=== PATIENT | female | born 1990 | race Caucasian/White ===

== ENCOUNTER 2018-05-12 16:43 | Outpatient (REF) | payer OTHER, SELFPAY | END 2018-05-12 17:03 | LOC: NCHCN 16:43 | PROVIDERS: PCP Family Medicine; Visit Provider Family Medicine | DX: N12 Tubulo-interstitial nephritis, not specified as acute or chronic (principal) | CPT/HCPCS: 87077; 87086; 87186 ==

== ENCOUNTER 2019-02-17 18:34 | Emergency (ER) | payer OTHER, SELFPAY ==
[2019-02-17 18:40] VITALS: BP 134/64; PULSE 77; RESP 16; TEMP 37; O2SAT 98
[2019-02-17 18:47] VITALS: RESP 16
--- NOTE | 2019-02-17 18:54 | ED.GENADUL_ITS ---
Discharge Plan Disposition Patient Disposition: HOME Condition: Stable Discharge Details Chief Complaint: Vascular Clinical Impression: Swelling of joint of left wrist Primary Care Provider: Sony Hutson ED Provider: Matheus Gasca Home Meds and New Rx's Prescriptions: No Action ibuprofen 200 MG capsule 1 cap PO PRN PRNRF: 0 multivitamin Capsule 1 cap PO DAILY RF: 0 naproxen sodium [Aleve] 220 mg Capsule 220 mg PO PRN PRNRF: 0 Discharge Instructions Additional Instructions: I suspect your symptoms are due to overuse syndrome but would like to rule out a DVT. You should be contacted to set up a time to have an ultrasound done if not better in a week see your primary care provider. WHile sitting or laying try to keep the arm elevated if you have severe worsening pain, high fevers or feel more ill return to the emergency department Medical Decision Making 28 yo female comes in with left arm swelling since last night primarily around the wrist. Denies falls or other trauma. HAs no systemic symptoms of infectious symptoms and no rashes. States she has had this in the past a few years ago and had an u/s which was negative per pt and it resolved on it's own. She does a lot of typing and lifting with her arms. She has mild swelling of the left wrist with no palpable tenderness and normal 2+ radial and ulnar pulses. I suspect overuse syndrome but will have pt return for an u/s to eval for dvt tomorrow. She has normal pulses and vascular exam otherwise so doubt dissection or arterial occlusion. Will have her f/u with pcp if it continues and return if worsening Differential Diagnosis dvt, strain, overuse HPI General Mode of arrival: ambulatory . Date/Time Provider Initiated Documentation: 02/17/19 18:48 . Limitations to Documentation: no limitations . Information obtained by: patient . History of Present Illness 28 year old F presents to the emergency department with the chief complaint of left wrist swelling, described as moderate, Quality is described as aching, and is localized to the left and upper extremity. Patient reports no radiation. Patient started experiencing this day(s) (1) and it has been constant. No relieving factors improve symptom(s), No exacerbating factors reported . Patient notes no other symptoms.. Patient did receive the following treatments prior to arrival, none Related Data Home Medications Medication Instructions Recorded Confirmed ibuprofen 1 cap PO PRN PRN 07/26/15 02/17/19 multivitamin 1 cap PO DAILY 02/17/19 02/17/19 naproxen sodium [Aleve] 220 mg PO PRN PRN 02/17/19 02/17/19 Allergies Allergy/AdvReac Type Severity Reaction Status Date / Time No Known Allergies Allergy Unverified 02/17/19 18:44 General Stated Complaint: Vascular ROSALBA: 3 Review of Systems Review of Systems All systems reviewed & are unremarkable except as noted in HPI and below Constitutional Denies chills, Denies fever(s) and Denies weakness Cardiovascular Denies chest pain and Denies dyspnea Respiratory Denies cough and Denies dyspnea Gastrointestinal Denies abdominal pain, Denies nausea and Denies vomiting Integumentary/Breasts Denies rash Neurologic Denies weakness PFSH Social History Smoking/Tobacco Use Status: Current-Occasional Alcohol Intake: never Drug use: Never Substance use type: does not use Do you feel safe at home: Yes Exam Const General: no acute distress Orientation: alert HENMT Head: normal to inspection Ears: external ears normal General nose exam: external nose normal Mouth: moist mucous membranes Eyes General: appearance normal, both eyes and all related structures Neck Neck: normal visual inspection Resp Effort & Inspection: normal respiratory effort and able to speak in complete sentences Cardio Rate: regular rate Skin General skin exam: no rashes or lesions noted Neuro General: alert and oriented x3 Extrem General: full ROM and normal capillary refill Psych Mental Status: mental status grossly normal Course Vital Signs Temperature 37.0 C 02/17/19 18:40 Pulse 77 02/17/19 18:40 Respiratory Rate 16 02/17/19 18:40 Blood Pressure 134/64 02/17/19 18:40 Pulse Oximetry 98 02/17/19 18:40 Temperature 37.0 C 02/17/19 18:40 Temperature Source Temporal Artery Scan 02/17/19 18:40 Pulse 77 02/17/19 18:40 Respiratory Rate 16 02/17/19 18:47 Respiratory Effort 02/17/19 18:47 Blood Pressure 134/64 02/17/19 18:40 Pulse Oximetry 98 02/17/19 18:40 Oxygen Delivery Method Room Air 02/17/19 18:40 Oxygen Flow Rate 0 02/17/19 18:40 Pain Level 5 02/17/19 18:40
== END 2019-02-17 19:30 | disposition home or self-care (01) ==
LOC: ER 19:24
PROVIDERS: Emergency Provider Emergency Medicine; PCP Family Medicine
DX: R22.32 Localized swelling, mass and lump, left upper limb (principal)
CPT/HCPCS: 99282

== ENCOUNTER 2019-02-18 12:34 | Outpatient (CLI) | payer OTHER, SELFPAY ==
--- NOTE | 2019-02-18 13:21 | DI.US_ITS ---
SYMPTOM/DIAGNOSIS: ARM SWELLING, ? DVT LEFT ARM ULTRASOUND: There is no evidence of DVT. There is no evidence of superficial thrombophlebitis. There is soft tissue swelling bilaterally at the wrists, right greater than left.
== END 2019-02-18 12:54 ==
PROVIDERS: PCP Family Medicine; Visit Provider Emergency Medicine
DX: R22.31 Localized swelling, mass and lump, right upper limb (principal); M79.89 Other specified soft tissue disorders
CPT/HCPCS: 93971

== ENCOUNTER 2019-03-31 23:05 | Emergency (ER) | payer OTHER, SELFPAY ==
--- NOTE | 2019-03-31 00:25 | DI.RAD_ITS ---
SYMPTOM/DIAGNOSIS: CP CHEST X-RAY: Comparison 07/26/15 The heart is normal in size. The lungs are clear. The mediastinal structures and pleura appear intact. CONCLUSION: Normal chest.
[2019-03-31 23:12] VITALS: BP 137/83; PULSE 69; RESP 16; TEMP 37; O2SAT 100
[2019-03-31 23:16] VITALS: RESP 16
--- NOTE | 2019-03-31 23:31 | ED.GENADUL_ITS ---
Discharge Plan Disposition Patient Disposition: HOME Condition: Good Discharge Details Chief Complaint: GenMedical Clinical Impression: Atypical chest pain Primary Care Provider: Sony Hutson ED Provider: Alem Geiger Home Meds and New Rx's Prescriptions: Continued multivitamin Capsule 1 cap PO DAILY RF: 0 Changed ibuprofen 200 MG capsule 3 cap PO Q8H PRNQty: 0 RF: 0 Discontinued naproxen sodium [Aleve] 220 mg Capsule 220 mg PO PRN PRNRF: 0 Discharge Instructions Instructions: Chest Pain (ED) Additional Instructions: EKG, chest x-ray, laboratory studies look good today. Pain is likely chest wall in nature. Leave the patch on for 12 hours. Begin using ibuprofen and heat. Follow-up with primary care next week if continued problems. Return to ED for fever, increasing shortness of breath, new or worsening pain. Referrals: Sony Hutson [Primary Care Provider] - Discharge Data Discharge Date/Time-TO BE ENTERED AT DEPARTURE: 04/01/19 00:54 Medical Decision Making <MUNA Ignacio - Last Filed: 04/02/19 16:51> Patient is a 28-year-old female presents today with chief complaint of left anterior chest pain, pain is pleuritic, radiates around to the back. No recent trauma. She is afebrile, nontoxic-appearing with stable vital signs. I do not appreciate any rash. No pain with palpation. She does endorse discomfort with deep inspiration. No lower extremity swelling, cords, pain. Lungs are clear. Normal cardiac exam. Patient's recent travel and pleuritic chest pain, no concern for possible pulmonary embolism. Plan for screening labs and cxr. Patient active smoker UPT negative. ECG reviewed by myself and Dr. Hollins. sinus bradycardia, rate 56 with no acute ischemic changes noted. At the end of my shift, care transitioned to Dr. Hollins with labs and imaging pending. <Minesh Hollins MD - Last Filed: 04/01/19 00:47> Patient had presented with left-sided chest pain radiating to the back that was pleuritic in nature. She had had it intermittently for couple of days but persistent today. She also had some heartburn for the last 3 hours. Initially seen by MUNA Francisco. EKG is normal. Laboratory studies and chest x-ray ordered. D-dimer is negative and patient is low risk so no need for CTA. Troponin negative. CBC and CMP unremarkable. Chest x-ray per my review and preliminary radiology read negative. Lidoderm patch ordered by MUNA Francisco has relieved most of patient's pain. She will be discharged home to follow-up with primary care next week if continued pain. Return to ED for fever, increasing shortness of breath, new or worsening pain, other concerns or problems. Lab Data Lab results reviewed: Yes I reviewed the patient's lab results. ECG Data Attestation: I personally reviewed and interpreted this ECG (s) as follows: Interpretation: Normal sinus rhythm at 56. Normal axis and intervals. No ST changes. HPI <MUNA Ignacio - Last Filed: 04/02/19 16:51> General Mode of arrival: ambulatory . Date/Time Provider Initiated Documentation: 03/31/19 23:29 . Limitations to Documentation: no limitations . Information obtained by: patient and RN notes reviewed . HPI Narrative: Patient is a 28-year-old female presents today with chief complaint of pleuritic chest pain that wraps around from the left anterior chest wall posteriorly. Denies any cough. No shortness of breath. She reports this pain is been intermittent for a while but was greatly exacerbated today and has been constant this afternoon. States the pain is worse with cough, deep inspiration. Has not noted any rash. Recently flew to [place]. She is not on any hormonal therapy. Patient is an active smoker. No family history of cardiac disease. Related Data Home Medications Medication Instructions Recorded Confirmed multivitamin 1 cap PO DAILY 02/17/19 03/31/19 ibuprofen 3 cap PO Q8H PRN #0 cap 04/01/19 03/31/19 Previous Rx's Medication Instructions Recorded ibuprofen 3 cap PO Q8H PRN #0 cap 04/01/19 Allergies Allergy/AdvReac Type Severity Reaction Status Date / Time No Known Allergies Allergy Unverified 03/31/19 23:19 General Stated Complaint: GenMedical ROSALBA: 3 Review of Systems <MUNA Ignacio - Last Filed: 04/02/19 16:51> Constitutional Reports as per HPI, Denies chills, Denies fever(s), Denies headache(s), Denies lethargy and Denies poor appetite Eyes Denies change in vision ENT Denies dizziness and Denies headache(s) Cardiovascular Reports as per HPI, Reports chest pain, Reports chest pain with activity, Denies radiating jaw, neck or arm pain, Denies palpitations, Denies dyspnea and Denies dyspnea on exertion Respiratory Reports as per HPI, Denies chest congestion, Denies cough, Denies pain on inspiration, Denies pain with cough, Denies dyspnea, Denies dyspnea on exertion and Denies wheezing Gastrointestinal Reports as per HPI, Denies abdominal pain, Denies diarrhea, Denies nausea and Denies vomiting Musculoskeletal Reports as per HPI and Denies back pain Integumentary/Breasts Reports as per HPI and Denies rash Neurologic Reports as per HPI, Denies dizziness and Denies headache(s) Endocrine Denies palpitations Allergic/Immunologic Denies wheezing PFSH <MUNA Ignacio - Last Filed: 04/02/19 16:51> Social History Smoking/Tobacco Use Status: Current-Occasional Alcohol Intake: never Drug use: Never Substance use type: does not use Do you feel safe at home: Yes Do you feel safe in your relationship?: Yes Exam <MUNA Ignacio - Last Filed: 04/02/19 16:51> Const General: cooperative, healthy appearing, comfortable, no acute distress and well developed Nutritional Appearance: average body habitus and well nourished Orientation: alert, awake and oriented x3 HENMT Head: normal to inspection Ears: hearing grossly normal bilaterally Mouth: moist mucous membranes Chest Chest: normal inspection of the chest, normal palpation of entire chest wall and no crepitus Resp Effort & Inspection: normal respiratory effort, able to speak in complete sentences and no respiratory distress Auscultation: clear to auscultation bilaterally, no rales, no rhonchi and no wheezes Cardio Rate: regular rate Rhythm: regular rhythm Heart Sounds: S1 normal and S2 normal GI Inspection: normal to inspection, no edema and non-distended Palpation: soft, no hepatosplenomegaly, not firm, no guarding, not rigid and nontender Auscultation: normal bowel sounds Back/Spine/Pelvis Back: no CVA tenderness Thoracic/Lumbar Spine: thoracic and lumbar spine normal to inspection Skin General skin exam: no rashes or lesions noted Trauma: no lacerations or abrasions Neuro General: alert, awake and oriented x3 Cognition: normal cognition Speech: speech normal Gait: normal gait Extrem General: normal to inspection, normal capillary refill, no pedal edema, no calf tenderness and normal gait Psych Appearance: grossly normal and well kempt Mental Status: mental status grossly normal Speech and Movement: speech and movement normal Course <MUNA Ignacio - Last Filed: 04/02/19 16:51> Vital Signs Temperature 37.0 C 03/31/19 23:12 Pulse 69 03/31/19 23:12 Respiratory Rate 16 03/31/19 23:12 Blood Pressure 137/83 03/31/19 23:12 Pulse Oximetry 100 03/31/19 23:12 Temperature 37.0 C 03/31/19 23:12 Pulse 69 03/31/19 23:12 Respiratory Rate 16 03/31/19 23:16 Respiratory Effort 03/31/19 23:16 Respiratory Depth Normal 03/31/19 23:16 Respiratory Pattern Normal 03/31/19 23:16 Blood Pressure 137/83 03/31/19 23:12 Pulse Oximetry 100 03/31/19 23:12 Oxygen Delivery Method Room Air 03/31/19 23:12 Oxygen Flow Rate 0 03/31/19 23:12 Pain Level 3 03/31/19 23:12
[2019-03-31] MEDS: Lidocaine 5% Patch 1 PATCH TP (23:57)
[2019-04-01 00:03] LABS: Abs Immature Grans 0.03 k/cumm (0.0-0.09); Absolute Basophil Count 0.05 k/cumm (0.0-0.2); Absolute Eosinophil Count 0.19 k/cumm (0.0-0.7); Absolute Lymphocyte Count 3.78 k/cumm (1.2-3.4); Absolute Monocyte Count 0.89 k/cumm (0.11-0.7); Absolute Neutrophil Count 5.12 k/cumm (1.2-6.7); Basophils % 0.5; Eosinophils % 1.9; HGB 13.2 g/dL (12.0-15.5); Immature Grans % 0.3; Lymphocytes % 37.6; Mean Corp. HGB Concentration 33.8 g/dL (32.0-36.0); Mean Corpuscular Hemoglobin 31.6 pg (27.0-33.0); Mean Corpuscular Volume 93.3 fL (80-95); Mean Platelet Volume 9.6 fL (8.0-11.0); Monocytes % 8.8; Neutrophils % 50.9; Platelet Count 326 x1000/uL (130-400); RBC 4.18 m/cumm (4.00-5.20); RBC Distribution Width 12.3 % (11.7-14.6); White Blood Cell Count 10.06 k/cumm (4.4-10.8)
[2019-04-01 00:21] LABS: ALT 26 U/L (14-59); AST 12 U/L (15-37); Albumin 3.8 g/dL (3.4-5.0); Alkaline Phosphatase 78 U/L (46-116); Anion Gap 8.6 mmol/L (3-11); BUN 6 mg/dL (7-18); Bilirubin, Total 0.1 mg/dL (0.2-1.0); CO2 27.4 mmol/L (21.0-32.0); CREATININE 0.84 mg/dL (0.55-1.02); Calcium 8.9 mg/dL (8.5-10.1); Chloride 105 mmol/L (98-107); Glucose 98 mg/dL (70-100); Sodium 141 mmol/L (136-145); Total Protein 7.2 g/dL (6.4-8.2)
[2019-04-01 00:24] LABS: Troponin I < 0.05 ng/mL (0.00-0.06)
[2019-04-01 00:35] LABS: D-Dimer 284 ng/mlFEU (<500)
--- NOTE | 2019-04-01 00:35 | DI.VRAD_ITS ---
EXAM: XR Chest, 2 Views EXAM DATE/TIME: 03/31/2019 11:58 PM CLINICAL HISTORY: 28 years old, female; Chest pain; Type not specified TECHNIQUE: Imaging protocol: XR of the chest, 2 views. COMPARISON: CR RIGHT RIBS TO INCLUDE CXR 07/26/2015 4:46 PM FINDINGS: Lungs: Normal pulmonary expansion. Pulmonary vasculature grossly normal. No infiltrates. Pleural space: No pleural effusion. No pneumothorax. Heart/Mediastinum: Heart size normal. No tracheal/mediastinal shift. Vasculature: Mild aortic ectasia and tortuosity. Bones/joints: No acute osseous abnormalities are identified. IMPRESSION: No acute thoracic process. Dictated and Authenticated by: Sony Harris MD. Ordering:PROSPER Ferrara MD
== END 2019-04-01 00:54 | disposition home or self-care (01) ==
PROVIDERS: Emergency Provider Physician Assistant; PCP Family Medicine
DX: R07.81 Pleurodynia (principal)
CPT/HCPCS: 36415; 80053; 81025; 93005; 99284; 71046; 84484; 85025; 85379; 93010

== ENCOUNTER 2023-01-27 22:57 | Outpatient (REF) | payer BC, SELFPAY ==
[2023-01-27 23:17] LABS: TSH (W/Ref FT4) 1.57 uIU/mL (0.36-3.74)
[2023-01-29 16:35] LABS: Hepatitis C Ab w Rflx HCV PCR Negative (Negative)
[2023-01-29 17:00] LABS: HIV-1/2 Ag & Ab Screen Negative (Negative)
== END 2023-01-27 22:58 | disposition home or self-care (01) ==
LOC: LBN 22:57
PROVIDERS: PCP Nurse Practitioner Family; Visit Provider Nurse Practitioner Family
DX: L65.9 Nonscarring hair loss, unspecified (principal); Z11.4 Encounter for screening for human immunodeficiency virus [HIV]; Z11.59 Encounter for screening for other viral diseases
CPT/HCPCS: 86803; 87389; 84443